=== PATIENT | female | born 1970 | race Caucasian/White ===

== ENCOUNTER 2016-12-16 21:42 | Emergency (ER) | payer OTHER ==
[2016-12-16 22:07] VITALS: BP 144/79; PULSE 90; RESP 16; TEMP 97.8; O2SAT 98
[2016-12-16] MEDS ORDERED: PREDNISONE 20 MG TAB PO ONE (22:29)
[2016-12-16] MEDS ORDERED: PREDNISONE 20 MG TAB ONE (22:31)
== END 2016-12-16 22:52 | disposition home or self-care (01) ==
LOC: ED 21:42
DX: M54.5 Low back pain (principal)
CPT/HCPCS: 99282